=== PATIENT | male | born 1985 | race Caucasian/White ===

== ENCOUNTER 2019-02-26 20:03 | Emergency (ER) | payer SELFPAY ==
[2019-02-26] MEDS ORDERED: ONDANSETRON 4 MG/2 ML VIAL ONE (20:38)
[2019-02-26] MEDS ORDERED: MORPHINE 4 MG/ML SYR ONE (20:38)
[2019-02-26] MEDS ORDERED: NA CHLORIDE 0.9% 1,000 ML ONE (20:39)
[2019-02-26 21:14] LABS: Absolute Lymphocytes (CBC) 4.6 K/uL (0.7-4.9); Basophils % 0.1 % (0-1.3); Hematocrit 41.1 % (39.6-49.0); Lymphocytes % 35.7 % (15.3-44.8); RBC Red Blood Cell Count 4.19 M/uL (4.33-5.43)
[2019-02-26 21:19] LABS: Urine Blood 1+ (NEG); Urine Glucose NEGATIVE (NEG); Urine Protein NEGATIVE (NEG); Urine Specific Gravity <1.005 (1.005-1.030); Urine pH 6.5 (5.0-7.0)
[2019-02-26 21:31] LABS: Albumin 4.3 g/dL (3.4-5.0); Bilirubin Direct 0.1 mg/dL (0-0.2); Bilirubin Total 0.4 mg/dL (0.2-1.0); Potassium 3.5 mmol/L (3.5-5.1); Protein, Total 7.9 g/dL (6.4-8.2)
--- NOTE | 2019-02-26 21:51 | RAD REPORT ---
EXAM DESCRIPTION: US - Abdomen Exam Limited - 02/26/2019 9:35 pm CLINICAL HISTORY: ABD PAIN COMPARISON: No comparisons FINDINGS: The gallbladder demonstrates no gallstones. No pericholecystic fluid or gallbladder wall t hickening. The common bile duct is normal measuring 4 mm. The liver demonstrates no findings of intrahepatic biliary dilatation. IMPRESSION: Unremarkable examination.
[2019-02-26 22:05] LABS: Urine Bacteria <20 /HPF (NONE SEEN); Urine RBC <5 /HPF (NONE SEEN)
[2019-02-26 22:06] LABS: Urine Culture Reflex Order NOT NEEDED
[2019-02-26] MEDS ORDERED: MAGNE/ALUM HYDROXD 30 ML UCUP ONE (22:55)
[2019-02-26] MEDS ORDERED: PANTOPRAZOLE 40 MG INJ ONE (22:55)
--- NOTE | 2019-02-26 22:55 | ER ---
Nurse's Notes [facility] Name: Dayo Maguire Age: 33 yrs Sex: Male : 1985 Arrival Date: 02/26/2019 Time: 20:07 Bed 6 Private MD: Diagnosis: Gastritis, unspecified, without bleeding;Abdominal tenderness, unspecified site Presentation: 02/26 20:23 Presenting complaint: Patient states: Epigastric pain intermittent that began 3 days lp1 ago, radiating to back; + ETOH to help with pain; Denies any nausea, vomiting. Transition of care: patient was not received from another setting of care. Onset of symptoms was February 26, 2019. Risk Assessment: Do you want to hurt yourself or someone else? Patient reports no desire to harm self or others. Initial Sepsis Screen: Does the patient meet any 2 criteria? No. Patient's initial sepsis screen is negative. Does the patient have a suspected source of infection? No. Patient's initial sepsis screen is negative. Care prior to arrival: None. 20:23 Method Of Arrival: Ambulatory lp1 20:23 Acuity: OMAR 3 lp1 Historical: - Allergies: 20:26 No Known Allergies; lp1 - Home Meds: 20:26 None [Active]; lp1 - PMHx: 20:26 None; lp1 - PSHx: 20:26 None; lp1 - Immunization history:: Adult Immunizations up to date. - Social history:: Smoking status: Patient uses tobacco products, smokes one pack cigarettes per day. Patient uses alcohol, on a daily basis. states about 2 pints daily . - Ebola Screening: : No symptoms or risks identified at this time. Screenin:26 Abuse screen: Denies threats or abuse. Denies injuries from another. Nutritional lp1 screening: No deficits noted. Tuberculosis screening: No symptoms or risk factors identified. 20:30 Fall Risk IV access (20 points). Total Smalls Fall Scale indicates No Risk (0-24 pts). rr5 Assessment: 20:30 General: Appears in no apparent distress. comfortable, Behavior is calm, cooperative, rr5 appropriate for age, Reports had a few drinks. Pain: Complains of pain in epigastric area Pain does not radiate. Pain currently is 8 out of 10 on a pain scale. Quality of pain is described as aching, Pain began 2-3 days ago. Is intermittent. Neuro: Level of Consciousness is awake, alert, obeys commands, Oriented to person, place, time, situation, Appropriate for age. Cardiovascular: Capillary refill < 3 seconds Patient's skin is warm and dry. Respiratory: Airway is patent Respiratory effort is even, unlabored, Respiratory pattern is regular, symmetrical. GI: Abdomen is flat, Bowel sounds present X 4 quads. Abd is soft and non tender Reports upper abdominal pain, Patient currently denies nausea, vomiting. : No signs and/or symptoms were reported regarding the genitourinary system. EENT: No signs and/or symptoms were reported regarding the EENT system. Derm: Skin is intact, is healthy with good turgor, Skin temperature is warm. Musculoskeletal: Circulation, motion, and sensation intact. Capillary refill < 3 seconds. 21:16 Reassessment: Patient appears in no apparent distress at this time. Patient and/or cc3 family updated on plan of care and expected duration. Pain level reassessed. Patient is alert, oriented x 3, equal unlabored respirations, skin warm/dry/pink. Patient taken to ultrasound department by the vehicle operator technician by wheelchair. 22:04 Reassessment: Patient appears in no apparent distress at this time. Patient is alert, rr5 oriented x 3, equal unlabored respirations, skin warm/dry/pink. came back from CT scan pain score of 5/10. Patient states symptoms have improved. 23:16 Reassessment: Patient appears in no apparent distress at this time. Patient is alert, rr5 oriented x 3, equal unlabored respirations, skin warm/dry/pink. discharge instruction given and explained without complaints made, verbalized understanding. Patient states feeling better. Patient states symptoms have improved. Vital Signs: 20:24 BP 126 / 81; Pulse 77; Resp 18; Temp 97.8(O); Pulse Ox 98% on R/A; Weight 78.47 kg; lp1 Height 6 ft. 1 in. (185.42 cm); Pain 8/10; 22:00 BP 122 / 80; Pulse 75; Resp 17; Pulse Ox 98% on R/A; Pain 5/10; rr5 23:10 BP 117 / 75; Pulse 70; Resp 17; Temp 96.5; Pulse Ox 99% on R/A; rr5 20:24 Body Mass Index 22.82 (78.47 kg, 185.42 cm) lp1 ED Course: 20:07 Patient arrived in ED. cf2 20:24 Triage completed. lp1 20:25 Arm band placed on left wrist. lp1 20:27 Yunier Ng MD is Attending Physician. tw4 20:30 Ramón Malik, RN is Primary Nurse. rr5 20:36 Patient has correct armband on for positive identification. Bed in low position. Call rr5 light in reach. Pulse ox on. NIBP on. 20:40 Inserted saline lock: 18 gauge in right antecubital area, using aseptic technique. ds4 Blood collected. 21:36 US Abdomen Limited In Process Unspecified. EDMS 21:[address] via wheelchair. nj 22:12 CT Abd/Pelvis - IV Contrast Only In Process Unspecified. EDMS 23:18 No provider procedures requiring assistance completed. IV discontinued, intact, rr5 bleeding controlled, No redness/swelling at site. Pressure dressing applied. Administered Medications: 20:55 Drug: NS 0.9% 1000 ml Route: IV; Rate: 1 bolus; Site: right antecubital; rr5 22:10 Follow up: Response: No adverse reaction; IV Status: Completed infusion; IV Intake: rr5 1000ml 20:56 Drug: Zofran 4 mg Route: IVP; Site: right antecubital; rr5 22:00 Follow up: Response: No adverse reaction rr5 20:58 Drug: morphine 4 mg {Note: rass0.} Route: IVP; Site: right antecubital; rr5 22:00 Follow up: Response: No adverse reaction; RASS: Alert and Calm (0) rr5 22:53 Drug: GI Cocktail without - (Maalox Suspension 30 ml, Lidocaine Liquid 2 % 15 rr5 ml) Route: PO; 23:19 Follow up: Response: No adverse reaction rr5 22:55 Drug: ProTONIX 40 mg Route: IVP; Site: right antecubital; rr5 23:19 Follow up: Response: No adverse reaction rr5 Intake: 22:10 IV: 1000ml; Total: 1000ml. rr5 Outcome: 22:55 Discharge ordered by . tw4 23:18 Discharged to home ambulatory, with family. rr5 23:18 Condition: stable 23:18 Discharge instructions given to patient, Instructed on discharge instructions, follow up and referral plans. medication usage, Demonstrated understanding of instructions, follow-up care, medications, Prescriptions given X 1. 23:19 Patient left the ED. rr5 Signatures: Dispatcher [employer] EDMS Katie Odell, RN RN lp1 Dante Colindres ds4 Reji Marquez Terrence, MD MD tw4 Kay Garcia cc3 Ramón Malik RN RN rr5 Carmen Lara cf2
[2019-02-26] MEDS ORDERED: LIDOCAINE VISCOUS 2% SOLN 15 ML UDC ONE (22:56)
--- NOTE | 2019-02-26 22:56 | EDPHYS ---
Physician Documentation [facility] Name: Dayo Maguire Age: 33 yrs Sex: Male : 1985 Arrival Date: 02/26/2019 Time: 20:07 Bed 6 Private MD: ED Physician Yunier Ng HPI: 02/27 06:12 This 33 yrs old Male presents to ER via Ambulatory with complaints of tw4 Abdominal Pain, Back Pain. 06:14 The patient presents with abdominal pain in the epigastric area. Onset: The tw4 symptoms/episode began/occurred 4 day(s) ago. The symptoms radiate to back. Associated signs and symptoms: Pertinent positives: nausea, Pertinent negatives: chest pain, diarrhea, vomiting, vomiting blood. The symptoms are described as sharp. Modifying factors: The symptoms are alleviated by nothing, the symptoms are aggravated by alcohol, food. Severity of pain: At its worst the pain was moderate in the emergency department the pain is unchanged. The patient has not experienced similar symptoms in the past. Historical: - Allergies: 02/26 20:26 No Known Allergies; lp1 - Home Meds: 20:26 None [Active]; lp1 - PMHx: 20:26 None; lp1 - PSHx: 20:26 None; lp1 - Immunization history:: Adult Immunizations up to date. - Social history:: Smoking status: Patient uses tobacco products, smokes one pack cigarettes per day. Patient uses alcohol, on a daily basis. states about 2 pints daily . - Ebola Screening: : No symptoms or risks identified at this time. ROS: 02/27 06:14 Constitutional: Negative for fever, chills, and weight loss, Eyes: Negative for injury, tw4 pain, redness, and discharge, Cardiovascular: Negative for chest pain, palpitations, and edema, Respiratory: Negative for shortness of breath, cough, wheezing, and pleuritic chest pain, Back: Negative for injury and pain, MS/Extremity: Negative for injury and deformity, Skin: Negative for injury, rash, and discoloration, Neuro: Negative for headache, weakness, numbness, tingling, and seizure. Abdomen/GI: Positive for abdominal pain, nausea, Negative for nausea and vomiting, nausea, vomiting, and diarrhea, anorexia, dysphagia, hematemesis, black/tarry stool, rectal pain, rectal bleeding, bowel incontinence. Exam: 06:14 Constitutional: This is a well developed, well nourished patient who is awake, alert, tw4 and in no acute distress. Head/Face: Normocephalic, atraumatic. Chest/axilla: Normal chest wall appearance and motion. Nontender with no deformity. No lesions are appreciated. Cardiovascular: Regular rate and rhythm with a normal S1 and S2. No gallops, murmurs, or rubs. Normal PMI, no JVD. No pulse deficits. Respiratory: Lungs have equal breath sounds bilaterally, clear to auscultation and percussion. No rales, rhonchi or wheezes noted. No increased work of breathing, no retractions or nasal flaring. Back: No spinal tenderness. No costovertebral tenderness. Full range of motion. Skin: Warm, dry with normal turgor. Normal color with no rashes, no lesions, and no evidence of cellulitis. MS/ Extremity: Pulses equal, no cyanosis. Neurovascular intact. Full, normal range of motion. Neuro: Awake and alert, GCS 15, oriented to person, place, time, and situation. Cranial nerves II-XII grossly intact. Motor strength 5/5 in all extremities. Sensory grossly intact. Cerebellar exam normal. Normal gait. 06:14 Abdomen/GI: Inspection: abdomen appears normal, Bowel sounds: normal, Palpation: moderate abdominal tenderness, in the epigastric area. Vital Signs: 02/26 20:24 BP 126 / 81; Pulse 77; Resp 18; Temp 97.8(O); Pulse Ox 98% on R/A; Weight 78.47 kg; lp1 Height 6 ft. 1 in. (185.42 cm); Pain 8/10; 22:00 BP 122 / 80; Pulse 75; Resp 17; Pulse Ox 98% on R/A; Pain 5/10; rr5 23:10 BP 117 / 75; Pulse 70; Resp 17; Temp 96.5; Pulse Ox 99% on R/A; rr5 20:24 Body Mass Index 22.82 (78.47 kg, 185.42 cm) lp1 MDM: 20:27 Patient medically screened. tw4 02/27 06:14 Differential diagnosis: gastritis, gastroesophageal reflux disease, GI Bleed, tw4 Hepatitis, pancreatitis, Peptic Ulcer Disease, Perf. Duodenal Ulcer, Perf. Gastric Ulcer, Peritonitis. Data reviewed: vital signs, nurses notes. Data reviewed: lab test result(s), CBC, white blood cell count, hemoglobin, hematocrit, platelets, electrolytes, sodium, potassium, chloride, serum bicarbonate, BUN, creatinine, serum glucose, hepatic panel, radiologic studies, CT scan, ultrasound. Data interpreted: Pulse oximetry: Interpretation: normal. Counseling: I had a detailed discussion with the patient and/or guardian regarding: the historical points, exam findings, and any diagnostic results supporting the discharge/admit diagnosis, lab results, radiology results. Medication response: morphine relieved the patient's pain. Symptoms have resolved. Response to treatment: the patient's symptoms have resolved after treatment, and as a result, I will discharge patient. Special discussion: Based on the patient's Hx, exam, and Dx evaluation, there is no indication for emergent surgery or inpatient Tx. It is understood by the patient/guardian that if the Sx's persist or worsen they need to return immediately for re-evaluation. I discussed with the patient/guardian in detail that at this point there is no indication for admission to the hospital. It is understood, however, that if the symptoms persist or worsen the patient needs to return immediately for re-evaluation. 02/26 20:33 Order name: Basic Metabolic Panel; Complete Time: 21:44 tw4 02/26 20:33 Order name: CBC with Diff; Complete Time: :44 tw4 02/26 20:33 Order name: Creatinine for Radiology; Complete Time: 21:44 tw4 02/26 20:33 Order name: Hepatic Function; Complete Time: 21:44 4 02/26 20:33 Order name: Lipase; Complete Time: 21:44 4 02/26 21:00 Order name: Urine Dipstick--Ancillary (enter results); Complete Time: 21:44 cm6 02/26 21:01 Order name: Urine Microscopic Only; Complete Time: 22:51 rr5 02/26 21:05 Order name: US Abdomen Limited; Complete Time: 22:51 tw4 02/26 21:44 Order name: CT Abd/Pelvis - IV Contrast Only tw4 02/26 20:33 Order name: IV Saline Lock; Complete Time: 20:51 tw4 02/26 20:33 Order name: Labs collected and sent; Complete Time: 20:51 tw4 Administered Medications: 02/26 20:55 Drug: NS 0.9% 1000 ml Route: IV; Rate: 1 bolus; Site: right antecubital; rr5 22:10 Follow up: Response: No adverse reaction; IV Status: Completed infusion; IV Intake: rr5 1000ml 20:56 Drug: Zofran 4 mg Route: IVP; Site: right antecubital; rr5 22:00 Follow up: Response: No adverse reaction rr5 20:58 Drug: morphine 4 mg {Note: rass0.} Route: IVP; Site: right antecubital; rr5 22:00 Follow up: Response: No adverse reaction; RASS: Alert and Calm (0) rr5 22:53 Drug: GI Cocktail without - (Maalox Suspension 30 ml, Lidocaine Liquid 2 % 15 rr5 ml) Route: PO; 23:19 Follow up: Response: No adverse reaction rr5 22:55 Drug: ProTONIX 40 mg Route: IVP; Site: right antecubital; rr5 23:19 Follow up: Response: No adverse reaction rr5 Disposition: 02/26/19 22:55 Discharged to Home. Impression: Gastritis, unspecified, without bleeding, Abdominal tenderness, unspecified site. - Condition is Stable. - Discharge Instructions: Abdominal Pain, Adult, Gastritis, Adult. - Prescriptions for Protonix 40 mg Oral Tablet - take 1 tablet by ORAL route once daily; 30 tablet. Zofran 4 mg Oral Tablet - take 1 tablet by ORAL route every 12 hours As needed; 6 tablet. - Medication Reconciliation Form, Thank You Letter, Antibiotic Education, Prescription Opioid Use form. - Follow up: Private Physician; When: Upon discharge from the Emergency Department; Reason: Recheck today's complaints, Continuance of care. - Problem is new. - Symptoms have improved. Signatures: Dispatcher [employer] EDMS Katie Odell RN RN lp1 Yunier Ng MD MD tw4 Ramón Malik RN RN rr5 Corrections: (The following items were deleted from the chart) 23:19 22:55 02/26/2019 22:55 Discharged to Home. Impression: Gastritis, unspecified, without rr5 bleeding; Abdominal tenderness, unspecified site. Condition is Stable. Forms are Medication Reconciliation Form, Thank You Letter, Antibiotic Education, Prescription Opioid Use. Follow up: Private Physician; When: Upon discharge from the Emergency Department; Reason: Recheck today's complaints, Continuance of care. Problem is new. Symptoms have improved. tw4
[2019-02-26 23:36] VITALS: BP 117/75; TEMP 96.5; O2SAT 99
--- NOTE | 2019-02-27 10:49 | RAD REPORT ---
EXAM DESCRIPTION: Abdomen Pelvis W Contrast CLINICAL HISTORY: 33 years Male ABD PAIN COMPARISON: None TECHNIQUE: Images were obtained in axial, sagittal, and coronal planes. Intravenous contrast was adm inistered. This exam was performed according to our departmental dose-optimization program which includes use of Automated Exposure Control, adjustment of the mA and/or kV according to patient size and/or use of i terative reconstruction technique. FINDINGS: Appendix within normal limits. No bowel obstruction, perforation, or inflammation. No obstructing renal calcifications bilaterally. No hydronephrosis bilaterally. Moderately distended bladder. Mildly enlarged prostate gland. Surgical clips superior scrotal sacs bilaterally. No abnormality involving the liver, spleen, pancreas, gallbladder, or adrenal glands bilaterally. No abnormality abdominal aorta or portal vein. No adenopathy or abnormal fluid collections seen. No acute osseous abnormality. No abnormality lower lungs bilaterally. IMPRESSION: No acute intra-abdominal abnormality. Mildly enlarged prostate gland. Electronically signed by: Corina Hernández MD 02/26/2019 10:24 PM [employer] O[employer]ATOR Due to temporary technical issues with the PACS/Fluency reporting system, reports are being signed by the in house radiologist as a courtesy to ensure prompt reporting. The interpreting radiologist is f ully responsible for the content of the report.
== END 2019-02-26 23:19 | disposition home or self-care (01) ==
LOC: ER 20:03
DX: K29.70 Gastritis, unspecified, without bleeding (principal); F17.210 Nicotine dependence, cigarettes, uncomplicated
CPT/HCPCS: 36415; 74177; 76705; 80048; 80076; 81003; 81015; 83690; 85025; C9113; J2405; J7030; Q9967

== ENCOUNTER 2019-11-09 22:40 | Emergency (ER) | payer OTHER ==
--- OUTSIDE RECORDS SUMMARY | 2019-11-09 22:42 | XMS REPORT ---
:1985 Author Organization [employer] Care Team Providers Name Role Phone Franck Jacobh Provider Role Unavailable Allergies, Adverse Reactions, Alerts Substance Reaction Event Type N.K.D.A. Info Not Available Non Drug Allergy Problems Problem Type Condition Code Onset Dates Condition Statu s Assessment Encounter for counseling for Z71.6 Active tobacco use disorder Assessment Hypertriglyceridemia E78.1 Active Assessment Elevated LFTs R79.89 Active Problem Tobacco use disorder, continuous F17.209 Active Problem Alcohol abuse F10.10 Active Problem Hypertriglyceridemia E78.1 Active Assessment Alcohol abuse F10.10 Active Assessment Bilateral inguinal hernia without K40.20 Active obstruction or gangrene, recurrence not specified Assessment Tobacco use disorder, continuous F17.209 Active Medications Medication Code System Code Instructions Start Date End Date Status Dosage Nicotine [facility] [id number] 21 MG/24HR Active APPLY 1 PATCH EVERY DAY DIRECTED Results No Known Results Summary Purpose [employer] Submission
--- OUTSIDE RECORDS SUMMARY | 2019-11-09 22:42 | XMS REPORT | Continuity of Care Document ---
:1985 Author Organization [facility] t Address [address] [place] [address] Care Team Providers Name Role Phone Unavailable Unavailable Unavailable Problems Condition Condition Condition Status Onset Resolution Last Treating Co mments Source Name Details Category Date Date Treatment Clinician Date Encounter Encounter Diagnosis Active [facility] - counseling counseling Me moria for for l tobacco tobacco Outpat[facility] use use ent disorder disorder Clinic s Hypertrigl Hypertrigl Problem Active [facility] yceridemia yceridemia [facility]issa [facility] Elevated Elevated Diagnosis Active [facility] Tobacco Tobacco Diagnosis [facility], disorder, Gideon sussy continuous continuous l Outpati ent Clinics Alcohol Alcohol Diagnosis [facility] Bilateral Bilateral Diagnosis Active [facility] inguinal inguinal [facility] - hernia hernia [facility] without without l obstructio obstructio Ou tpati n or n or ent gangrene, gangrene, Clin ics recurrence recurrence not not specified specified Allergies, Adverse Reactions, Alerts This patient has no known allergies or adverse reactions. Medications Ordered Filled Start Stop Current Ordering Indication Dosage Frequency Signature Comments Components Source Medication Medication Date Date Medication? Clinician (SIG) Name Name Nicotine Nicotine Yes Danis APPLY [address] [facility] PATCH [facility] - EVERY DAY [facility] Procedures This patient has no known procedures. Encounters Start End Encounter Admission Attending Care Care Encounter Source Date/Time Date/Time Type Type Clinicians Facility Department ID 2019-08-30 2019-08-30 [facility] [id number] [facility] [address] 10:00:00 10:00:00 [facility] Medicine [facility] 2019-07-06 2019-07-06 [facility] [id number] [facility] [address] 09:00:00 09:00:00 t [employer] [facility] Medicine Outpati ent Clinics Results This patient has no known results.
[2019-11-09 23:48] LABS: Protime INR 0.94
[2019-11-09] MEDS ORDERED: NA CHLORIDE 0.9% 1,000 ML ONE (23:53)
[2019-11-10 00:03] LABS: ALT/SGPT 102 U/L (12-78); AST/SGOT 136 U/L (15-37); Alkaline Phosphatase 78 U/L (45-117); BUN Blood Urea Nitrogen 12 mg/dL (7-18); Bicarbonate 28 mmol/L (21-32); Bilirubin Direct 0.2 mg/dL (0-0.2); Bilirubin Total 0.5 mg/dL (0.2-1.0); Creatine Phosphokinase 871 U/L (39-308); Glucose Level 139 mg/dL (74-106); Magnesium 2.4 mg/dL (1.8-2.4); NT PRO-BNP 5 pg/mL (<125); Potassium 3.5 mmol/L (3.5-5.1); Sodium Level 144 mmol/L (136-145); Troponin (Emerg Dept Use Only) < 0.02 ng/mL (0.0-0.045)
[2019-11-10] MEDS ORDERED: NA CHLORIDE 0.9% 1,000 ML ONE (00:26)
[2019-11-10 00:32] LABS: Urine Blood 2+ (NEG); Urine Glucose NEGATIVE (NEG); Urine Protein 1+ (NEG); Urine Specific Gravity >1.030 (1.005-1.030); Urine pH 5.5 (5.0-7.0)
[2019-11-10 00:33] LABS: Absolute Lymphocytes (CBC) 3.7 K/uL (0.7-4.9); Basophils % 0.7 % (0-1.3); Hematocrit 39.6 % (39.6-49.0); Lymphocytes % 36.1 % (15.3-44.8); RBC Red Blood Cell Count 4.02 M/uL (4.33-5.43)
[2019-11-10 00:43] LABS: Barbiturates NEGATIVE (NEGATIVE); Benzodiazepines NEGATIVE (NEGATIVE); Cocaine NEGATIVE (NEGATIVE); METHAMPHETAM NEGATIVE (NEGATIVE); Methadone NEGATIVE (NEGATIVE); Opiates NEGATIVE (NEGATIVE); Phencyclidine NEGATIVE (NEGATIVE); THC Cannibis NEGATIVE (NEGATIVE)
[2019-11-10 00:58] LABS: Urine Bacteria 20-50 /HPF (NONE SEEN); Urine Culture Reflex Order REFLEXED; Urine Mucus 1+ /HPF (NONE SEEN)
[2019-11-10] MEDS ORDERED: CEFTRIAXONE/SWI 1gm 1 GM/10 ML SYR ONE (02:10)
--- NOTE | 2019-11-10 03:31 | EDPHYS ---
Physician Documentation [facility] Name: Dayo Maguire Age: 34 yrs Sex: Male : 1985 Arrival Date: 11/09/2019 Time: 22:41 Bed 17 Private MD: ED Physician Yunier Ng HPI: 11/08 23:20 This 34 yrs old Male presents to ER via Wheelchair with complaints of Altered cp Mental Status. 23:20 The patient presents with decreased mental status. cp 23:20 Onset: The symptoms/episode began/occurred today. Associated signs and symptoms: cp Pertinent positives: fatigue times 2 weeks, Pertinent negatives: abdominal pain, chest pain, combativeness. Current symptoms: In the emergency department the patient's symptoms are unchanged from the initial presentation. Patient's baseline: Neuro: alert and fully oriented, Motor: no deficits, Ambulation: walks without assistance, Speech: normal. 23:20 Significant other reports similar episode occurred with patient 2 weeks ago when he cp returned from fishing all day and slept all day the next day. Historical: - Allergies: 22:57 No Known Allergies; ll1 - PMHx: 22:57 seasonal allergies; ADD/ADHD; ll1 - PSHx: 22:57 Vasectomy; ll1 - Immunization history:: Adult Immunizations up to date. - Social history:: Smoking status: Patient reports the use of cigarette tobacco products, smokes one-half pack cigarettes per day, Patient uses alcohol, on a daily basis. Patient/guardian denies using street drugs. ROS: 23:25 Constitutional: Negative for body aches, chills, fever, poor PO intake. cp 23:25 Eyes: Negative for injury, pain, redness, and discharge. cp Exam: 23:30 ECG was reviewed by the Attending Physician. cp 23:33 Constitutional: The patient appears in no acute distress, alert, awake, cp non-diaphoretic, non-toxic, well developed, well nourished. 23:33 Head/Face: Normocephalic, atraumatic. cp 23:33 Eyes: Periorbital structures: appear normal, Pupils: equal, round, and reactive to light and accomodation, Extraocular movements: intact throughout, Conjunctiva: normal, no exudate, no injection, Sclera: no appreciated abnormality, Lids and lashes: appear normal, bilaterally. 23:33 ENT: External ear(s): are unremarkable, Nose: is normal, Mouth: is normal, Posterior pharynx: Airway: no evidence of obstruction, patent. 23:33 Neck: ROM/movement: is normal, is supple, without pain, no range of motions limitations, no meningismus. 23:33 Chest/axilla: Inspection: normal, Palpation: is normal, no crepitus, no tenderness. 23:33 Cardiovascular: Rate: normal, Rhythm: regular, Edema: is not appreciated, JVD: is not appreciated. 23:33 Respiratory: the patient does not display signs of respiratory distress, Respirations: normal, no use of accessory muscles, no retractions, labored breathing, is not present, Breath sounds: are clear throughout, no decreased breath sounds, no stridor, no wheezing. 23:33 Abdomen/GI: Inspection: abdomen appears normal, Bowel sounds: active, all quadrants, Palpation: abdomen is soft and non-tender, in all quadrants. 23:33 Back: pain, is absent. 23:33 Skin: cellulitis, is not appreciated, no rash present. 23:33 Neuro: Orientation: to person, place \T\ time. Mentation: able to follow commands, slow to respond, Cerebellar function: normal finger to nose testing, Motor: moves all fours, strength is normal, Sensation: numbness, that is mild, of the right arm. Vital Signs: 22:55 BP 127 / 93; Pulse 89; Resp 18; Temp 98.0; Pulse Ox 98% ; Pain 0/10; ll1 23:41 BP 125 / 95; Pulse 80; Resp 18; Pulse Ox 98% on R/A; 11/09 00:44 BP 123 / 83; Pulse 73; Resp 18; Pulse Ox 99% on R/A; 01:55 BP 113 / 79; Pulse 73; Resp 16; Pulse Ox 98% on R/A; 03:00 BP 108 / 79; Pulse 69; Resp 16; Pulse Ox 98% ; NIH Stroke Scale Scores: 11/08 23:40 NIHSS Score: 0 MDM: 23:04 Patient medically screened. cp 23:50 Differential Diagnosis: electrolyte abnormality, alcohol intoxication, overdose, cp sepsis, UTI, volume depletion, anemia. 11/09 03:30 Data reviewed: vital signs, nurses notes, lab test result(s), EKG, radiologic studies, cp CT scan, and as a result, I will discharge patient. 03:30 Test interpretation: by ED physician or midlevel provider: ECG. Counseling: I had a cp detailed discussion with the patient and/or guardian regarding: the historical points, exam findings, and any diagnostic results supporting the discharge/admit diagnosis, lab results, radiology results, to return to the emergency department if symptoms worsen or persist or if there are any questions or concerns that arise at home. Response to treatment: patient is well hydrated. VSS. Patient sleeping in exam room. Will discharge to home with significant other for continued monitoring. 11/08 23:18 Order name: UDS; Complete Time: 00:55 11/09 01:55 Interpretation: Reviewed. 11/08 23:18 Order name: Basic Metabolic Panel; Complete Time: 00:13 cp 11/09 00:55 Interpretation: Normal except: CL 108; GLUC 139; GFR 72; CA 8.3. 11/08 23:18 Order name: CBC with Diff; Complete Time: 00:55 11/09 00:55 Interpretation: Normal except: RBC 4.02. cp 11/08 23:18 Order name: LFT's; Complete Time: 00:13 cp 11/09 00:13 Interpretation: Normal except: AST 136; ALT 102; GLOB 4.0; A/G 1.0. cp 11/08 23:18 Order name: Magnesium; Complete Time: 00:13 cp 11/08 23:18 Order name: NT PRO-BNP; Complete Time: 00:13 cp 11/08 23:18 Order name: PT-INR; Complete Time: 00:13 cp 11/08 23:18 Order name: Troponin (emerg Dept Use Only); Complete Time: 00:13 cp 11/08 23:18 Order name: ETOH Level; Complete Time: 00:19 cp 11/09 00:19 Interpretation: Abnormal: ETOH 253. cp 11/08 23:18 Order name: CPK; Complete Time: 00:13 cp 11/09 00:13 Interpretation: Abnormal: CPK 871. cp 11/08 23:21 Order name: Urine Microscopic Only; Complete Time: 01:54 cp 11/09 01:55 Interpretation: Normal except: URBC 5-10; UBACT 20-50. cp 11/08 23:22 Order name: Lactate; Complete Time: 00:27 cp 11/09 00:27 Interpretation: Abnormal: LAC 2.1. cp 11/08 23:22 Order name: Procalcitonin; Complete Time: 00:55 cp 11/09 00:27 Order name: Urine Dipstick--Ancillary (enter results); Complete Time: 00:55 tt3 11/09 00:55 Interpretation: Normal except: USPGR >1.030; UBLD 2+; UPROT 1+. cp 11/08 23:18 Order name: EKG; Complete Time: 23:19 cp 11/08 23:18 Order name: Cardiac monitoring; Complete Time: 23:36 cp 11/08 23:18 Order name: EKG - Nurse/Tech; Complete Time: 23:37 cp 11/08 23:18 Order name: IV Saline Lock; Complete Time: 23:37 cp 11/08 23:18 Order name: Labs collected and sent; Complete Time: 23:37 cp 11/08 23:18 Order name: O2 Per Protocol; Complete Time: 23:37 cp 11/08 23:18 Order name: O2 Sat Monitoring; Complete Time: 23:37 cp 11/08 23:18 Order name: CT Head Brain wo Cont cp 11/08 23:21 Order name: Urine Dipstick-Ancillary (obtain specimen); Complete Time: 00:28 cp 11/09 01:00 Order name: Urine Culture EDMS 11/09 03:28 Order name: Lactate Sepsis 2 HR Follow-up; Complete Time: 03:29 EDMS EC/01 23:30 Rate is 77 beats/min. Rhythm is regular. PA interval is normal. QRS interval is normal. cp QT interval is normal. T waves are Inverted in lead aVR. Interpreted by me. Reviewed by me. Administered Medications: 23:46 Drug: NS 0.9% 1000 ml Route: IV; Rate: 1 bolus; Site: right antecubital; 11/09 03:45 Follow up: Response: No adverse reaction; IV Status: Completed infusion 00:27 Drug: NS 0.9% 1000 ml Route: IV; Rate: 1 bolus; Site: right antecubital; 01:16 Follow up: Response: No adverse reaction; IV Status: Completed infusion 03:04 Follow up: Response: No adverse reaction; IV Status: Completed infusion 02:12 Drug: Rocephin 1 grams Route: IV; Rate: calculated rate; Site: right antecubital; 03:04 Follow up: Response: No adverse reaction; IV Status: Completed infusion Disposition: 11/10/19 03:30 Discharged to Home. Impression: Alcohol use, unspecified with intoxication, Urinary tract infection, site not specified. - Condition is Stable. - Discharge Instructions: Alcohol Intoxication, Urinary Tract Infection, Adult. - Prescriptions for Cipro 500 mg Oral Tablet - take 1 tablet by ORAL route every 12 hours for 7 days; 14 tablet. - Medication Reconciliation Form, Thank You Letter, Antibiotic Education, Prescription Opioid Use form. - Follow up: Private Physician; When: 1 - 2 days; Reason: Worsening of condition. - Problem is new. - Symptoms have improved. NIH Stroke Scale - NIH Stroke Score Date: 11/09/2019 Time: 23:40 Total Score = 0 1a. Level of Consciousness (LOC) - 0(Alert) 1b. Level of Consciousness (LOC) (Year \T\ Age) - 0(Both) 1c. LOC Commands (Open \T\ Closes Eyes/[facility] Of Hospital) - 0(Both) 2. Best Gaze (Lateral Gaze Paresis) - 0(Normal) 3. Visual Field Loss - 0(No visual loss) 4. Facial Palsy - 0(Normal) 5a. Left Arm: Motor (10-second hold) - 0(No drift) 5b. Right Arm: Motor (10-second hold) - 0(No drift) 6a. Left Leg: Motor (5-second hold - always test supine) - 0(No drift) 6b. Right Leg: Motor (5-second hold - always test supine) - 0(No drift) 7. Limb Ataxia (finger/nose \T\ heel/burgos - test with eyes open) - 0(Absent) 8. Sensory Loss (pinprick arms/legs/face) - 0(Normal) 9. Best Language: Aphasia (description/naming/reading) - 0(No aphasia) 10. Dysarthria (speech clarity - read or repeat words) - 0(Normal) 11. Extinction and Inattention (visual/tactile/auditory/spatial/personal) - 0(No abnormality) Initials: Addendum: 11/11/2019 04:30 Co-signature as Attending Physician, Yunier Ng MD I agree with the tw4 assessment and plan of care. Signatures: Dispatcher [employer] EDMS Leonel Pickett PA PA cp Karel, Ludy Yunier Ng MD MD tw4 Antonio Houston, RN RN ll1 Corrections: (The following items were deleted from the chart) 11/09 00:55 00:13 Normal except: CL 108; GLUC 139; GFR 72. cp cp 03:45 03:30 11/10/2019 03:30 Discharged to Home. Impression: Alcohol use, unspecified wh with intoxication; Urinary tract infection, site not specified. Condition is Stable. Forms are Medication Reconciliation Form, Thank You Letter, Antibiotic Education, Prescription Opioid Use. Follow up: Private Physician; When: 1 - 2 days; Reason: Worsening of condition. Problem is new. Symptoms have improved. cp
--- NOTE | 2019-11-10 03:31 | ER ---
Nurse's Notes [facility] Name: Dayo Maguire Age: 34 yrs Sex: Male : 1985 Arrival Date: 11/09/2019 Time: 22:41 Bed 17 Private MD: Diagnosis: Alcohol use, unspecified with intoxication;Urinary tract infection, site not specified Presentation: 11/08 22:55 Chief complaint: Patient states: Severe fatigue for 2 weeks. No cough/fever. Good ll1 appetite. Denies N/V/D. Coronavirus screen: Client denies travel out of the [place] in the last 14 days. fatigue, At this time, the client does not indicate any symptoms associated with coronavirus-19. Ebola Screen: Patient denies travel to an Ebola-affected area in the 21 days before illness onset. Initial Sepsis Screen: Does the patient meet any 2 criteria? No. Patient's initial sepsis screen is negative. Risk Assessment: Do you want to hurt yourself or someone else? Patient reports no desire to harm self or others. Onset of symptoms was October 25, 2019. 22:55 Method Of Arrival: Wheelchair ll1 22:55 Acuity: OMAR 3 ll1 23:41 Initial Sepsis Screen: Does the patient have a suspected source of infection? No. wh Patient's initial sepsis screen is negative. Historical: - Allergies: 22:57 No Known Allergies; ll1 - PMHx: 22:57 seasonal allergies; ADD/ADHD; ll1 - PSHx: 22:57 Vasectomy; ll1 - Immunization history:: Adult Immunizations up to date. - Social history:: Smoking status: Patient reports the use of cigarette tobacco products, smokes one-half pack cigarettes per day, Patient uses alcohol, on a daily basis. Patient/guardian denies using street drugs. Screenin:40 Abuse screen: Denies threats or abuse. Denies injuries from another. Nutritional wh screening: No deficits noted. Tuberculosis screening: No symptoms or risk factors identified. Fall Risk None identified. 23:40 VAN Screening: Arm Drift: Patient shows no arm weakness. Visual Disturbance: No visual wh disturbance noted. Aphasia: No aphasia noted. Neglect: No neglect noted. Assessment: 23:39 General: Appears in no apparent distress. Behavior is calm, cooperative, appropriate wh for age. Pain: Denies pain. Neuro: Level of Consciousness is awake, alert, obeys commands, Oriented to person, place, time, situation, Appropriate for age [employer] are equal bilaterally Moves all extremities. Gait is steady, Speech is normal, Facial symmetry appears normal, Pupils are PERRLA, Reports weakness. Cardiovascular: Heart tones S1 S2. Respiratory: Airway is patent Respiratory effort is even, unlabored, Respiratory pattern is regular, symmetrical, Breath sounds are clear bilaterally. GI: Abdomen is flat, non-distended. : No signs and/or symptoms were reported regarding the genitourinary system. EENT: No signs and/or symptoms were reported regarding the EENT system. Derm: Skin is intact, is healthy with good turgor, Skin is pink, warm \T\ dry. normal. Musculoskeletal: Circulation, motion, and sensation intact. 11/09 00:44 Reassessment: Patient appears in no apparent distress at this time. No changes from previously documented assessment. Patient and/or family updated on plan of care and expected duration. Pain level reassessed. Patient is alert, oriented x 3, equal unlabored respirations, skin warm/dry/pink. 01:55 Reassessment: Patient appears in no apparent distress at this time. No changes from previously documented assessment. Patient and/or family updated on plan of care and expected duration. Pain level reassessed. Patient is alert, oriented x 3, equal unlabored respirations, skin warm/dry/pink. 03:04 Reassessment: Patient appears in no apparent distress at this time. No changes from previously documented assessment. Patient and/or family updated on plan of care and expected duration. Pain level reassessed. Patient is alert, oriented x 3, equal unlabored respirations, skin warm/dry/pink. Pt sleeping well no signs of distress noted. Vital Signs: 11/08 22:55 BP 127 / 93; Pulse 89; Resp 18; Temp 98.0; Pulse Ox 98% ; Pain 0/10; ll1 23:41 BP 125 / 95; Pulse 80; Resp 18; Pulse Ox 98% on R/A; 11/09 00:44 BP 123 / 83; Pulse 73; Resp 18; Pulse Ox 99% on R/A; 01:55 BP 113 / 79; Pulse 73; Resp 16; Pulse Ox 98% on R/A; 03:00 BP 108 / 79; Pulse 69; Resp 16; Pulse Ox 98% ; NIH Stroke Scale Scores: 11/08 23:40 NIHSS Score: 0 ED Course: 22:41 Patient arrived in ED. cl3 22:56 Triage completed. ll1 22:57 Arm band placed on Patient placed in an exam room, on a stretcher. ll1 23:04 Leonel Pickett PA is PHCP. cp 23:04 Yunier Ng MD is Attending Physician. cp 23:19 Ludy Vinson is Primary Nurse. 23:20 Inserted saline lock: 20 gauge in right antecubital area, using aseptic technique. Blood collected. 23:31 Radiology exam delayed due to Currently have IV started and labs drawn. kw1 23:41 Patient has correct armband on for positive identification. Placed in gown. Bed in low wh position. Call light in reach. Side rails up X 1. secured entrance monitor on. Pulse ox on. NIBP on. 23:46 CT Head Brain wo Cont In Process Unspecified. EDMS 11/09 03:42 No provider procedures requiring assistance completed. IV discontinued, intact, bleeding controlled, No redness/swelling at site. Administered Medications: 11/08 23:46 Drug: NS 0.9% 1000 ml Route: IV; Rate: 1 bolus; Site: right antecubital; 11/09 03:45 Follow up: Response: No adverse reaction; IV Status: Completed infusion 00:27 Drug: NS 0.9% 1000 ml Route: IV; Rate: 1 bolus; Site: right antecubital; 01:16 Follow up: Response: No adverse reaction; IV Status: Completed infusion 03:04 Follow up: Response: No adverse reaction; IV Status: Completed infusion 02:12 Drug: Rocephin 1 grams Route: IV; Rate: calculated rate; Site: right antecubital; 03:04 Follow up: Response: No adverse reaction; IV Status: Completed infusion Outcome: 03:30 Discharge ordered by . cp 03:44 Discharged to home ambulatory, with family. 03:44 Condition: stable 03:44 Discharge instructions given to patient, family, Instructed on discharge instructions, follow up and referral plans. medication usage, POC Demonstrated understanding of instructions, follow-up care, medications, POC Prescriptions given X 1. 03:45 Patient left the ED. NIH Stroke Scale - NIH Stroke Score Date: 11/09/2019 Time: 23:40 Total Score = 0 1a. Level of Consciousness (LOC) - 0(Alert) 1b. Level of Consciousness (LOC) (Year \T\ Age) - 0(Both) 1c. LOC Commands (Open \T\ Closes Eyes/Try Out Person) - 0(Both) 2. Best Gaze (Lateral Gaze Paresis) - 0(Normal) 3. Visual Field Loss - 0(No visual loss) 4. Facial Palsy - 0(Normal) 5a. Left Arm: Motor (10-second hold) - 0(No drift) 5b. Right Arm: Motor (10-second hold) - 0(No drift) 6a. Left Leg: Motor (5-second hold - always test supine) - 0(No drift) 6b. Right Leg: Motor (5-second hold - always test supine) - 0(No drift) 7. Limb Ataxia (finger/nose \T\ heel/burgos - test with eyes open) - 0(Absent) 8. Sensory Loss (pinprick arms/legs/face) - 0(Normal) 9. Best Language: Aphasia (description/naming/reading) - 0(No aphasia) 10. Dysarthria (speech clarity - read or repeat words) - 0(Normal) 11. Extinction and Inattention (visual/tactile/auditory/spatial/personal) - 0(No abnormality) Initials: Signatures: Dispatcher [employer] EDMS Leonel Pickett PA PA cp Habalo, Winsy Perla Salas1 Olivia Houston cl3 Antonio Houston RN RN ll1
[2019-11-10 03:55] VITALS: TEMP 98
[2019-11-10 03:59] VITALS: O2SAT 98
[2019-11-10 04:00] VITALS: BP 108/79
--- NOTE | 2019-11-11 11:06 | RAD REPORT ---
EXAM DESCRIPTION: CT - Head Brain Wo Cont - 11/10/2019 3:19 am CLINICAL HISTORY: 34-year-old male with severe fatigue for two weeks. COMPARISON: None. TECHNIQUE: CT brain without contrast. This exam was performed according to our departmental dose opt imization program which includes use of automated exposure control, adjustment of the mA and/or kV ac cording to patient size and/or use of iterative reconstruction technique. FINDINGS: The ventricles, sulci, and cisterns are within normal limits. The espinoza-white matter diff erentiation is preserved. There is no mass effect, midline shift, intra- or extra-axial fluid colle ction/acute hemorrhage. The osseous structures are unremarkable. The paranasal sinuses and mastoi d air cells are clear. IMPRESSION: No acute intracranial abnormalities. Electronically signed by: Ana Paula Ng MD 11/09/2019 11:58 PM CDT Due to temporary technical issues with the PACS/Fluency reporting system, reports are being signed by the in house radiologist without review as a courtesy to ensure prompt reporting. The interpreting r adiologist is fully responsible for the content of the report.
== END 2019-11-10 03:45 | disposition home or self-care (01) ==
LOC: ER 22:40
DX: F10.129 Alcohol abuse with intoxication, unspecified (principal); N39.0 Urinary tract infection, site not specified; F17.210 Nicotine dependence, cigarettes, uncomplicated
CPT/HCPCS: 93005; 87088; 85025; 87086; 80048; 36415 ×2; 80320; 83735; 82550; 85610; 80076; 80307 ×8; 83605 ×2; 84484; 84145; 83880; 70450; J0696; J7030 ×2; 81003; 81015; 96361; 96365; 99284

== ENCOUNTER 2023-05-29 07:24 | Day surgery (SDC) | payer BC ==
--- NOTE | 2023-05-25 14:39 | EKG ---
Test Date: 2023-05-25 Test Time: 11:22:49 Multiple Resaw Operator: YOSVANY MEASUREMENT RESULTS: Intervals: Rate: 74 SD: 144 QRSD: 86 QT: 400 QTc: 444 Biggs: P: 58 SD: 144 QRS: 40 T: 32 INTERPRETIVE STATEMENTS: Normal sinus rhythm Normal ECG Compared to ECG 11/09/2019 23:23:40 No significant changes Electronically Signed On 05-25-23 14:39:16 SIGNALMAN by Nelson Valdes
[2023-05-29] MEDS ORDERED: Ringers Lactate 1,000 ML IV ONE (07:37)
[2023-05-29] MEDS ORDERED: LIDOCAINE 1% MPF 5 ML VIAL ONE (08:43)
[2023-05-29] MEDS ORDERED: propofoL 200 MG/20 ML VIAL IV ONE ×2 (08:43→09:03)
[2023-05-29] MEDS ORDERED: NS 0.9% VIAL 10 ML ONE (08:44)
[2023-05-29 11:26] VITALS: BP 131/89; TEMP 97.5; O2SAT 100
== END 2023-05-29 09:50 | disposition home or self-care (01) ==
LOC: OR 07:24
PROVIDERS: ATTEND Surgery
PROC: 0DBM8ZX Excision of Descending Colon, Via Natural or Artificial Opening Endoscopic, Diagnostic (ICD-10-PCS; principal; 2023-05-29 08:30)
DX: K62.5 Hemorrhage of anus and rectum (principal); R19.4 Change in bowel habit; K57.30 Diverticulosis of large intestine without perforation or abscess without bleeding; K64.4 Residual hemorrhoidal skin tags; K64.8 Other hemorrhoids; K63.5 Polyp of colon; Z80.0 Family history of malignant neoplasm of digestive organs
CPT/HCPCS: 93005; 88305; 45384; A4216; J2704 ×2; J2001; J7120

== ENCOUNTER 2023-10-03 09:12 | Emergency (ER) | payer BC ==
[2023-10-03 09:52] LABS: Absolute Basophils 0.1 K/uL (0-0.5); Absolute Eosinophils 0.2 K/uL (0-0.5); Absolute Monocytes 0.9 K/uL (0.1-1.3); Absolute Neutrophil 6.4 K/uL (1.8-8.0); Eosinophils % 1.6 % (0-4.4); Hematocrit 47.4 % (39.6-49.0); Hemoglobin 16.6 g/dL (13.6-17.9); Lymphocytes % 28.3 % (15.3-44.8); MCH 36.2 pg (27.0-35.0); MCV 103.4 fL (80-100); MPV 7.8 fL (7.6-11.3); Monocytes % 8.8 % (3.3-12.3); Neutrophils % 60.3 % (41.7-73.7); Platelets 263 thou/uL (152-406); RBC Red Blood Cell Count 4.58 M/uL (4.33-5.43); Red Cell Distribution Width 14.2 % (12.1-15.2)
[2023-10-03 09:56] LABS: PT Prothrombin Time 10.6 SECONDS (9.4-12.5); PTT, Activated Partial Thromb 36.6 SECONDS (24.3-36.9); Protime INR 0.96
[2023-10-03 10:15] LABS: ALT/SGPT 102 U/L (16-61); AST/SGOT 157 U/L (15-37); Albumin 4.2 g/dL (3.4-5.0); Alkaline Phosphatase 76 U/L (45-117); Anion Gap 10.5 mEq/L (5.0-15.0); BUN Blood Urea Nitrogen 12 mg/dL (7-18); Bicarbonate 29 mEq/L (21-32); Bilirubin Direct 0.2 mg/dL (0-0.2); Bilirubin Indirect, Calculated 0.4 mg/dL (0.2-0.8); Bilirubin Total 0.6 mg/dL (0.2-1.0); Globulin 4.1 g/dL (2.3-3.5); Glomerular Filtration Rate 108 ml/min (=/>90); Glucose Level 115 mg/dL (74-106); Magnesium 2.1 mg/dL (1.6-2.4); NT PRO-BNP 10 pg/mL (<125); Potassium 3.5 mEq/L (3.5-5.1); Protein, Total 8.3 g/dL (6.4-8.2); Sodium Level 136 mEq/L (136-145); Troponin High Sensitivity 4.5 pg/mL (<58.9)
[2023-10-03 10:21] LABS: SARS-CoV-2 Antigen CONTROL BLUE LINE VIS/BG OK; SARS-CoV-2 Antigen Rapid Res Negative (Negative)
[2023-10-03 10:38] LABS: Specific Gravity < 1.005 (1.005-1.030); Sqamous Epithelial None Seen /HPF (None Seen); Urine Bacteria None Seen /HPF (<20); Urine Bilirubin NEGATIVE (Negative); Urine Blood 1+ (Negative); Urine Clarity Clear (Clear); Urine Color Colorless (Yellow); Urine Culture Reflex Order NOT NEEDED; Urine Glucose NEGATIVE (Negative); Urine Ketones NEGATIVE (Negative); Urine Microscopic Reflex YN ORDER UMIC; Urine Nitrite NEGATIVE (Negative); Urine Protein NEGATIVE (Negative); Urine RBC <5 /HPF (None Seen); Urine Urobilinogen Normal (Normal); Urine WBC <5 /HPF (<5)
[2023-10-03 10:48] LABS: Barbiturates NEGATIVE (NEGATIVE); Benzodiazepines NEGATIVE (NEGATIVE); Cocaine NEGATIVE (NEGATIVE); METHAMPHETAM NEGATIVE (NEGATIVE); Methadone NEGATIVE (NEGATIVE); Opiates NEGATIVE (NEGATIVE); Phencyclidine NEGATIVE (NEGATIVE); THC Cannibis NEGATIVE (NEGATIVE)
--- NOTE | 2023-10-03 11:35 | ER ---
Nurse's Notes [facility] Name: Dayo Maguire Jr Age: 38 yrs Sex: Male : 1985 Arrival Date: 10/03/2023 Time: 09:12 Bed 30 Private MD: Diagnosis: Altered mental status, unspecified;Other malaise and fatigue Presentation: 10/02 09:18 Chief complaint: Patient states: Confusion, weakness, sleeping a lot, AMS, hard to ll1 move/walk since after leaving work. Cough with mucous for 2 days. Coronavirus screen: Client denies travel out of the [place] in the last 14 days. cough unrelated to allergies. Ebola Screen: Patient denies travel to an Ebola-affected area in the 21 days before illness onset. Initial Sepsis Screen: Does the patient meet any 2 criteria? No. Patient's initial sepsis screen is negative. Does the patient have a suspected source of infection? No. Patient's initial sepsis screen is negative. Risk Assessment: Do you want to hurt yourself or someone else? Patient reports no desire to harm self or others. Onset of symptoms was September 28, 2023. 09:18 Method Of Arrival: Ambulatory ll1 09:18 Acuity: OMAR 2 ll1 Historical: - Allergies: 09:18 No Known Allergies; ll1 - PMHx: 09:18 ADD/ADHD; seasonal allergies; Hypertensive disorder; ll1 - PSHx: 09:18 Vasectomy; ll1 - Immunization history:: Adult Immunizations up to date. - Infectious Disease History:: Denies. - Social history:: Smoking status: Patient reports the use of cigarette tobacco products, smokes one-half pack cigarettes per day. Screenin:34 [facility] ED Fall Risk Assessment (Adult) History of falling in the last 3 months, ph including since admission No falls in past 3 months (0 pts) Confusion or Disorientation No (0 pts) Intoxicated or Sedated No (0 pts) Impaired Gait No (0 pts) Mobility Assist Device Used No (0 pt) Altered Elimination No (0 pt) Score/Fall Risk Level 0 - 2 = Low Risk Oriented to surroundings, Maintained a safe environment, Provided non-skid footwear. Abuse screen: Denies threats or abuse. Denies injuries from another. Nutritional screening: No deficits noted. Tuberculosis screening: No symptoms or risk factors identified. Assessment: 10:33 General: Appears in no apparent distress. uncomfortable, slender, well groomed, ph Behavior is cooperative, appropriate for age, anxious, flat. Pain: Denies pain. Neuro: Level of Consciousness is awake, obeys commands, confused, Oriented to person, place, situation, Reports weakness. Cardiovascular: Capillary refill < 3 seconds in bilateral fingers Patient's skin is warm and dry. Respiratory: Airway is patent Respiratory effort is even, unlabored, Respiratory pattern is regular, symmetrical. GI: No signs and/or symptoms were reported involving the gastrointestinal system. Derm: Skin is pink, warm \T\ dry. 12:18 Reassessment: Patient appears in no apparent distress at this time. Patient and/or ph family updated on plan of care and expected duration. Pain level reassessed. D/C pending completion of IV fluids. Vital Signs: 09:18 BP 158 / 107; Pulse 106; Resp 17; Temp 97.9; Pulse Ox 97% ; Weight 86.18 kg; Height 6 ll1 ft. 0 in. ; Pain 3/10; 10:34 BP 138 / 108; Pulse 87; Resp 18; Pulse Ox 94% on R/A; ph 12:00 BP 124 / 81; Pulse 81; Resp 18; Pulse Ox 95% on R/A; ph 09:18 Body Mass Index 25.77 (86.18 kg, 182.88 cm) ll1 09:18 Pain Scale: Adult ll1 ED Course: 08:55 Initial lab(s) drawn, by ma, sent to lab. Inserted saline lock: 20 gauge in right ph antecubital area, using aseptic technique. Blood collected. 09:10 COVID swab sent to lab. Flu and/or RSV swab sent to lab. ph 09:13 Patient arrived in ED. mr 09:13 Leonel Dickerson MD is Attending Physician. jessica 09:20 Triage completed. ll1 09:20 Arm band placed on Patient placed in an exam room, on a stretcher. ll1 09:26 CT Head Brain wo Cont In Process Unspecified. EDMS 10:04 Ca Multani, RN is Primary Nurse. ph 10:32 EKG done, by ED staff, reviewed by Leonel Dickerson MD. ph 10:34 Patient has correct armband on for positive identification. Bed in low position. Call ph light in reach. Side rails up X 1. Client placed on continuous cardiac and pulse oximetry monitoring. NIBP monitoring applied. air sampling and monitoring on. Door closed. Noise minimized. Warm blanket given. 11:59 XRAY Chest (1 view) In Process Unspecified. EDMS 12:45 No provider procedures requiring assistance completed. IV discontinued, intact, ph bleeding controlled, No redness/swelling at site. Pressure dressing applied. Administered Medications: 10:05 Drug: NS 0.9% IV 1000 ml IV at 1 bolus Per protocol; 1000 mL bolus Route: IV; Rate: 1 ph bolus; Site: right antecubital; 10:45 Follow up: Response: No adverse reaction; IV Status: Completed infusion ph 10:05 Drug: foLIC Acid IVPB 1 mg IVPB once Route: IVPB; Site: right antecubital; ph 10:30 Follow up: IV Status: Completed infusion ph 11:30 Drug: Thiamine IV 100 mg IV at bolus once Route: IV; Rate: bolus; Site: right antecubital; 18:46 Follow up: Response: No adverse reaction; IV Status: Completed infusion ph 11:30 Drug: Banana Bag - (Multivitamin IV 1 amp, NS 0.9% IV 1000 ml, Thiamine IV 100 mg, ph foLIC Acid IVPB 1 mg) IV at 500 ml/hr once Route: IV; Rate: 500 ml/hr; Site: right antecubital; 13:00 Follow up: Response: No adverse reaction; IV Status: Completed infusion; IV Intake: ph 1000ml 11:30 Drug: Famotidine IVP 20 mg IVP once; dilute with 10 mL 0.9% NaCl; give over 2 minutes ph Route: IVP; Site: right antecubital; 12:00 Follow up: Response: No adverse reaction ph 11:30 Drug: Rocephin IV 2 grams IV at per protocol once; Given slow IV push per pharmarcy ph instructions Route: IV; Rate: per protocol; Site: right antecubital; 12:00 Follow up: Response: No adverse reaction; IV Status: Completed infusion ph Intake: 13:00 IV: 1000ml; Total: 1000ml. ph Outcome: 11:35 Discharge ordered by jessica 12:45 Patient left the ED. ph 12:45 Discharged to home ambulatory, with significant other, ph 12:45 Condition: good 12:45 Discharge instructions given to patient, significant other, Instructed on discharge instructions, follow up and referral plans. medication usage, Demonstrated understanding of instructions, follow-up care, medications, Prescriptions given X 1, 15:53 Patient left the ED. ph Signatures: Dispatcher [employer] EDLeonel Regan MD MD cha Rivera, Silke, Reg Reg mr Ca Multani RN RN ph Lewis, Lynsay, RN RN ll1 Corrections: (The following items were deleted from the chart) 09:20 09:18 Pulse 106bpm; Resp 17bpm; Pulse Ox 97%; Temp 97.9F; 86.18 kg; Height 6 ft. 0 in.; ll1 BMI: 25.7; Pain 310, Adult; ll1
--- NOTE | 2023-10-03 11:35 | EDPHYS ---
Physician Documentation [facility] Name: Dayo Maguire Jr Age: 38 yrs Sex: Male : 1985 Arrival Date: 10/03/2023 Time: 09:12 Bed 30 Private MD: ED Physician Leonel Dickerson HPI: 10/02 09:43 This 38 yrs old Male presents to ER via Ambulatory with complaints of Altered jessica Mental Status, Confusion. 09:43 The patient presents with confusion, decreased mental status. Onset: The jessica symptoms/episode began/occurred 5 day(s) ago. Possible causes: CVA or TIA, drug use, alcohol, head injury, low blood sugar, seizure, sepsis. Associated signs and symptoms: The patient has no apparent associated signs or symptoms. Current symptoms: In the emergency department the patient's symptoms are unchanged from the initial presentation. Patient's baseline: Neuro: alert and fully oriented, Motor: no deficits, Ambulation: walks without assistance, Speech: normal. The patient has not experienced similar symptoms in the past. Historical: - Allergies: 09:18 No Known Allergies; ll1 - PMHx: 09:18 ADD/ADHD; seasonal allergies; Hypertensive disorder; ll1 - PSHx: 09:18 Vasectomy; ll1 - Immunization history:: Adult Immunizations up to date. - Infectious Disease History:: Denies. - Social history:: Smoking status: Patient reports the use of cigarette tobacco products, smokes one-half pack cigarettes per day. ROS: 09:50 Constitutional: Negative for fever, chills, and weight loss, Eyes: Negative for injury, jessica pain, redness, and discharge, ENT: Negative for injury, pain, and discharge, Neck: Negative for injury, pain, and swelling, Cardiovascular: Negative for chest pain, palpitations, and edema, Abdomen/GI: Negative for abdominal pain, nausea, vomiting, diarrhea, and constipation, Back: Negative for injury and pain, : Negative for injury, bleeding, discharge, and swelling, MS/Extremity: Negative for injury and deformity, Skin: Negative for injury, rash, and discoloration, Psych: Negative for depression, anxiety, suicide ideation, homicidal ideation, and hallucinations, Allergy/Immunology: Negative for hives, rash, and allergies, Endocrine: Negative for neck swelling, polydipsia, polyuria, polyphagia, and marked weight changes, Hematologic/Lymphatic: Negative for swollen nodes, abnormal bleeding, and unusual bruising, 09:50 Respiratory: Positive for cough, 09:50 Neuro: Positive for altered mental status, dizziness, weakness, Exam: 09:50 Constitutional: This is a well developed, well nourished patient who is awake, alert, jessica and in no acute distress. Head/Face: Normocephalic, atraumatic. Eyes: Pupils equal round and reactive to light, extra-ocular motions intact. Lids and lashes normal. Conjunctiva and sclera are non-icteric and not injected. Cornea within normal limits. Periorbital areas with no swelling, redness, or edema. ENT: Nares patent. No nasal discharge, no septal abnormalities noted. Tympanic membranes are normal and external auditory canals are clear. Oropharynx with no redness, swelling, or masses, exudates, or evidence of obstruction, uvula midline. Mucous membranes moist. Neck: Trachea midline, no thyromegaly or masses palpated, and no cervical lymphadenopathy. Supple, full range of motion without nuchal rigidity, or vertebral point tenderness. No Meningismus. Chest/axilla: Normal chest wall appearance and motion. Nontender with no deformity. No lesions are appreciated. Cardiovascular: Regular rate and rhythm with a normal S1 and S2. No gallops, murmurs, or rubs. Normal PMI, no JVD. No pulse deficits. Respiratory: Lungs have equal breath sounds bilaterally, clear to auscultation and percussion. No rales, rhonchi or wheezes noted. No increased work of breathing, no retractions or nasal flaring. Abdomen/GI: Soft, non-tender, with normal bowel sounds. No distension or tympany. No guarding or rebound. No evidence of tenderness throughout. Back: No spinal tenderness. No costovertebral tenderness. Full range of motion. Male : Normal genitalia with no discharge or lesions. Skin: Warm, dry with normal turgor. Normal color with no rashes, no lesions, and no evidence of cellulitis. MS/ Extremity: Pulses equal, no cyanosis. Neurovascular intact. Full, normal range of motion. Psych: Awake, alert, with orientation to person, place and time. Behavior, mood, and affect are within normal limits. 09:50 Neuro: Orientation: is normal, Mentation: is normal, Memory: is normal, Cranial nerves: is grossly normal based on the patient's age, Cerebellar function: is grossly normal, Motor: is normal, Sensation: is normal, Gait: not applicable Babinski testing is normal, seizure activity, is not displayed by the patient, 15:47 ECG was reviewed by the Attending Physician. [facility] Vital Signs: 09:18 BP 158 / 107; Pulse 106; Resp 17; Temp 97.9; Pulse Ox 97% ; Weight 86.18 kg; Height 6 ll1 ft. 0 in. ; Pain 3/10; 10:34 BP 138 / 108; Pulse 87; Resp 18; Pulse Ox 94% on R/A; ph 12:00 BP 124 / 81; Pulse 81; Resp 18; Pulse Ox 95% on R/A; ph 09:18 Body Mass Index 25.77 (86.18 kg, 182.88 cm) ll1 09:18 Pain Scale: Adult ll1 MDM: 09:13 Patient medically screened. jessica 09:25 Patient medically screened. jessica 09:51 Differential Diagnosis altered mental status, sepsis, flu. Differential Diagnosis: CVA, jessica electrolyte abnormality, alcohol intoxication, hypoglycemia, intracranial bleed, meningitis, overdose, pneumonia, seizure, sepsis, TIA, UTI. Data reviewed: vital signs, nurses notes, lab test result(s), EKG, radiologic studies, CT scan, plain films. Consideration of Admission/Observation Patient was admitted/placed on observation. Escalation of care including admission/observation considered. I considered the following discharge prescriptions or medication management in the emergency department Medications were administered in the Emergency Department. See MAR. Independent interpretation of the following test(s) in the Emergency Department EKG: See my EKG interpretation above. Test considered but Not performed: Ultrasound no carotid usg. Care significantly affected by the following chronic conditions: Hypertension, adhd/add. Counseling: I had a detailed discussion with the patient and/or guardian regarding the historical points, exam findings, and any diagnostic results supporting the discharge/admit diagnosis, the presence of at least one elevated blood pressure reading (>120/80) during this emergency department visit, lab results, radiology results, the need for further work-up and treatment in the hospital. 10/02 09:15 Order name: Basic Metabolic Panel; Complete Time: 10:39 [facility] 10/02 09:15 Order name: CBC with Diff; Complete Time: 10:39 [facility] 10/02 09:15 Order name: LFT's; Complete Time: 10:39 [facility] 10/02 09:15 Order name: Magnesium; Complete Time: 10:39 [facility] 10/02 09:15 Order name: NT PRO-BNP; Complete Time: 10:39 [facility] 10/02 09:15 Order name: PT-INR; Complete Time: 10:39 [facility] 10/02 09:15 Order name: Troponin HS; Complete Time: 10:39 [facility] 10/02 09:15 Order name: Blood Culture Adult (2) 10/02 09:15 Order name: Lactate w/ 2H reflex if indic.; Complete Time: 10:39 [facility] 10/02 09:15 Order name: Acetaminophen; Complete Time: 10:39 [facility] 10/02 09:15 Order name: ETOH Level; Complete Time: 10:39 [facility] 10/02 09:15 Order name: Ptt, Activated; Complete Time: 10:39 [facility] 10/02 09:15 Order name: Salicylate; Complete Time: 10:39 [facility] 10/02 09:15 Order name: Urinalysis w/ reflexes; Complete Time: 10:39 [facility] 10/02 09:15 Order name: Urine Drug Screen; Complete Time: 10:54 [facility] 10/02 09:15 Order name: Flu; Complete Time: 10:39 [facility] 10/02 09:15 Order name: SARS RAPID; Complete Time: 10:39 [facility] 10/02 10:03 Order name: Lipase; Complete Time: 10:54 [facility] 10/02 10:03 Order name: AMMONIA; Complete Time: 11:32 [facility] 10/02 12:13 Order name: Ghost Lactate-NO COLLECT Timer EDPA 10/02 09:15 Order name: XRAY Chest (1 view) [facility] 10/02 09:15 Order name: CT Head Brain wo Cont [facility] 10/02 09:15 Order name: EKG; Complete Time: 09:16 [facility] 10/02 09:15 Order name: Cardiac monitoring; Complete Time: 10:14 [facility] 10/02 09:15 Order name: EKG - Nurse/Tech; Complete Time: 10:14 [facility] 10/02 09:15 Order name: IV Saline Lock; Complete Time: 10:14 [facility] 10/02 09:15 Order name: Labs collected and sent; Complete Time: 10:14 [facility] 10/02 09:15 Order name: O2 Per Protocol; Complete Time: 10:14 jessica 10/02 09:15 Order name: O2 Sat Monitoring; Complete Time: 10:14 jessica EC:47 Rate is 82 beats/min. Rhythm is regular. QRS [place] is Normal. NM interval is normal. QRS jessica interval is normal. QT interval is normal. No Q waves. T waves are Normal. No ST changes noted. Clinical impression: NSR w/ Non-specific ST/T Changes and No evidence of ischemia. Interpreted by me. Reviewed by me. Administered Medications: 10:05 Drug: NS 0.9% IV 1000 ml IV at 1 bolus Per protocol; 1000 mL bolus Route: IV; Rate: 1 ph bolus; Site: right antecubital; 10:45 Follow up: Response: No adverse reaction; IV Status: Completed infusion ph 10:05 Drug: foLIC Acid IVPB 1 mg IVPB once Route: IVPB; Site: right antecubital; ph 10:30 Follow up: IV Status: Completed infusion ph 11:30 Drug: Thiamine IV 100 mg IV at bolus once Route: IV; Rate: bolus; Site: right antecubital; 18:46 Follow up: Response: No adverse reaction; IV Status: Completed infusion ph 11:30 Drug: Banana Bag - (Multivitamin IV 1 amp, NS 0.9% IV 1000 ml, Thiamine IV 100 mg, ph foLIC Acid IVPB 1 mg) IV at 500 ml/hr once Route: IV; Rate: 500 ml/hr; Site: right antecubital; 13:00 Follow up: Response: No adverse reaction; IV Status: Completed infusion; IV Intake: ph 1000ml 11:30 Drug: Famotidine IVP 20 mg IVP once; dilute with 10 mL 0.9% NaCl; give over 2 minutes ph Route: IVP; Site: right antecubital; 12:00 Follow up: Response: No adverse reaction ph 11:30 Drug: Rocephin IV 2 grams IV at per protocol once; Given slow IV push per pharmarcy ph instructions Route: IV; Rate: per protocol; Site: right antecubital; 12:00 Follow up: Response: No adverse reaction; IV Status: Completed infusion ph Disposition Summary: 10/03/23 11:35 Discharge Ordered Notes: Location: Home jessica Problem: new jessica Symptoms: have improved jessica Condition: Stable jessica Diagnosis - Altered mental status, unspecified jessica - Other malaise and fatigue jsesica Followup: jessica - With: Private Physician - When: 2 - 3 days - Reason: Recheck today's complaints, Continuance of care, Re-evaluation by your physician Discharge Instructions: - Discharge Summary Sheet jessica - Alcohol Intoxication jessica - Alcohol Use Disorder jessica - Confusion jessica - Weakness ejssica - Alcohol Intoxication, [id number] jessica - Alcohol Abuse and Nutrition jessica - Weakness, [id number] jessica Forms: - Medication Reconciliation Form jessica - Antibiotic Education jessica - Prescription Opioid Use jessica - Patient Portal Instructions jessica - Leadership Thank You Letter jessica - Work release form ph Prescriptions: - Folic Acid 1 mg Oral Tablet - take 1 tablet ORAL route once daily; 30 tablet; Refills: 0, Product Selection jessica Permitted Signatures: Dispatcher [employer] EDMS Leonel Dickerson MD MD cha Hall, Patricia RN RN ph Antonio Houston RN RN ll1 Corrections: (The following items were deleted from the chart) 09:16 09:16 BASIC METABOLIC PANEL+C.LAB.BRZ ordered. EDMS EDMS 09:16 09:16 CBC+H.LAB.BRZ ordered. EDMS EDMS 09:16 09:16 HEPATIC FUNCTION+C.LAB.BRZ ordered. EDMS EDMS 09:16 09:16 MAGNESIUM+C.LAB.BRZ ordered. EDMS EDMS 09:16 09:16 PROBNP+C.LAB.BRZ ordered. EDMS EDMS 09:16 09:16 PROTIME (+INR)+COAG.LAB.BRZ ordered. EDMS EDMS 09:16 09:16 Troponin High Sensitivity+C.LAB.BRZ ordered. EDMS EDMS 09:16 09:16 BLOOD CULTURE*+BA.LAB.BRZ ordered. EDMS EDMS 09:16 09:16 LACTATE+C.LAB.BRZ ordered. EDMS EDMS 09:16 09:16 ACETAMINOPHEN+C.LAB.BRZ ordered. EDMS EDMS 09:16 09:16 ETHANOL+C.LAB.BRZ ordered. EDMS EDMS 09:16 09:16 PTT, ACTIVATED+COAG.LAB.BRZ ordered. EDMS EDMS 09:16 09:16 SALICYLATE+C.LAB.BRZ ordered. EDMS EDMS 09:16 09:16 Urinalysis+U.LAB.BRZ ordered. EDMS EDMS 09:16 09:16 URINE DRUG SCREEN+UC.LAB.BRZ ordered. EDMS EDMS 09:16 09:16 Influenza Screen (A \T\ B)+BA.LAB.BRZ ordered. EDMS EDMS 09:16 09:16 SARS-COV-2 Antigen Rapid+I.LAB.BRZ ordered. EDMS EDMS 10:05 09:15 Suicide Screening ([place]) ordered. jessica ph
--- OUTSIDE RECORDS SUMMARY | 2023-10-03 12:05 | XMS REPORT | Continuity of Care Document ---
Author Name Unknown Address [address] [facility] [place] [address] [facility] Address [address] [facility] [place] [address] Care Team Providers Care Bolter Helper Name Role Phone Danis Jacob Attending Clinician Unavailable Payers Payer Name Policy Type Policy Number Effective Date Expirati on Date Source [facility] 6 [id number] 2023 00:00:00 [facility] AETNA 53 [id number] 2020 00:00:00 [facility] AETNA C1 [id number] 2020 00:00:00 [facility] CIGNA C1 [id number] 2019 00:00:00 [facility] Problems Condition Name Condition Details Condition Category Status Onset Date Resolution Date Last Treatment Date Treating Clinician Comments Source [id number] Hyperchole sterolemia with LDL greater than 190 mg/dL Problem [facility] [id number] Hypercalce julien Problem [facility] [id number] Recurrent nephrolith iasis Problem [facility] [id number] History of vasectomy Problem [facility] [id number] Microscopi c hematuria Problem [facility] [id number] GERD without esophagiti s Problem [facility] [id number] Family history of colon cancer Problem [facility] [id number] Benign prostatic hyperplasi a with lower urinary tract symptoms Problem [facility] [id number] Other obstructiv e and reflux uropathy Problem [facility] [id number] Benign microscopi c hematuria Problem [facility] [id number] Left testicular pain Problem [facility] [id number] Hypertrigl yceridemia Problem Active [facility] [id number] Fatty liver Problem Active [facility] [id number] Alcohol abuse Problem Active [facility] [id number] Tobacco use disorder, continuous Problem Active [facility] [id number] Leukocytos is, unspecifie d type Problem Active [facility] 548247 Moderate major depression Problem [facility] [id number] Essential (primary) hypertensi on Problem [facility] [id number] 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 Ordering Clinician Indication Dosage Frequency Signature (SIG) Comments Components Source Uroxatral 10 MG Uroxatral 10 MG 4-11 00:00: 00 No 1{table t_at_be dtime} QD Uroxatral 10 MG buPROPion HCl ER (XL) 150 MG buPROPion HCl ER (XL) 150 MG 1-15 00:00: 00 No 1{table t_in_th e_morni ng} QD buPROPion HCl ER (XL) 150 MG Kenalog (Triamcinol one) Kenalog (Triamcinol one) 7-08 00:00: 00 No 40mg [facility] Lisinopril 10 MG Lisinopril 10 MG No 1{table t} QD Lisinopril 10 MG Lisinopril 20 MG Lisinopril 20 MG No Lisinopril 20 MG Ibuprofen 800 MG Ibuprofen 800 MG No Ibuprofen 800 MG Vital Signs Vital Name Observation Time Observation Value Comments Jerry bryan height 2023-09-27 13:15:00 73 [in_i] Commo n [facility] weight 2023-09-27 13:15:00 201.4 [lb_av] Co [facility] temperature 2023-09-27 13:15:00 97.6 [degF] Com [facility] bmi 2023-09-27 13:15:00 26.57 kg/m2 Comm on [facility] oximetry 2023-09-27 13:15:00 99 % Commo n [facility] respiratory rate 2023-09-27 13:15:00 18 /min [facility] blood pressure systolic 2023-09-27 13:15:00 134 mm[Hg] Common [facility] blood pressure diastolic 2023-09-27 13:15:00 83 mm[Hg] [facility] height 2023-09-15 10:00:00 73 [in_i] Commo n [facility] weight 2023-09-15 10:00:00 195.8 [lb_av] Co [facility] temperature 2023-09-15 10:00:00 97.8 [degF] Com [facility] bmi 2023-09-15 10:00:00 25.83 kg/m2 Comm on [facility] oximetry 2023-09-15 10:00:00 97 % Commo n [facility] blood pressure systolic 2023-09-15 10:00:00 128 mm[Hg] [facility] blood pressure diastolic 2023-09-15 10:00:00 72 mm[Hg] Common [facility] height 2023-05-17 17:30:00 73 [in_i] Commo n [facility] weight 2023-05-17 17:30:00 200.2 [lb_av] Co mmon [facility] temperature 2023-05-17 17:30:00 98.2 [degF] Com mon [facility] bmi 2023-05-17 17:30:00 26.41 kg/m2 Comm on [facility] oximetry 2023-05-17 17:30:00 98 % Commo n [facility] respiratory rate 2023-05-17 17:30:00 18 /min [facility] blood pressure systolic 2023-05-17 17:30:00 132 mm[Hg] [facility] blood pressure diastolic 2023-05-17 17:30:00 80 mm[Hg] [facility] height 2023-05-15 15:50:00 73 [in_i] Commo n [facility] weight 2023-05-15 15:50:00 193 [lb_av] Comm on [facility] temperature 2023-05-15 15:50:00 97.3 [degF] Com [facility] bmi 2023-05-15 15:50:00 25.46 kg/m2 Comm on [facility] oximetry 2023-05-15 15:50:00 97 % Commo n [facility] blood pressure systolic 2023-05-15 15:50:00 126 mm[Hg] [facility] blood pressure diastolic 2023-05-15 15:50:00 70 mm[Hg] Common [facility] height 2023-04-24 15:50:00 73 [in_i] Commo n [facility] weight 2023-04-24 15:50:00 197.4 [lb_av] Co mmon [facility] temperature 2023-04-24 15:50:00 98.1 [degF] Com mon [facility] bmi 2023-04-24 15:50:00 26.04 kg/m2 Comm on [facility] oximetry 2023-04-24 15:50:00 97 % Commo n [facility] blood pressure systolic 2023-04-24 15:50:00 137 mm[Hg] [facility] blood pressure diastolic 2023-04-24 15:50:00 70 mm[Hg] [facility] height 2020-12-10 07:50:00 73 [in_i] Commo n [facility] weight 2020-12-10 07:50:00 198 [lb_av] Comm on [facility] temperature 2020-12-10 07:50:00 98 [degF] Comm on [facility] bmi 2020-12-10 07:50:00 26.12 kg/m2 Comm on [facility] blood pressure systolic 2020-12-10 07:50:00 135 mm[Hg] [facility] blood pressure diastolic 2020-12-10 07:50:00 70 mm[Hg] [facility] height 2020-10-15 15:30:00 73 [in_i] Commo n [facility] weight 2020-10-15 15:30:00 197.5 [lb_av] Co mmon [facility] temperature 2020-10-15 15:30:00 98.0 [degF] Com mon [facility] bmi 2020-10-15 15:30:00 26.05 kg/m2 Comm on [facility] oximetry 2020-10-15 15:30:00 97 % Commo n [facility] respiratory rate 2020-10-15 15:30:00 16 /min Common [facility] blood pressure systolic 2020-10-15 15:30:00 131 mm[Hg] [facility] blood pressure diastolic 2020-10-15 15:30:00 79 mm[Hg] [facility] Encounters Start Date/Time End Date/Time Encounter Type Admission Type Attending [facility] Care Department Encounter ID Source 2023-09-25 16:15:00 Outpatient Jacob, Danis STLMLC STLMLC [id number] [facility] 2023-09-13 10:57:00 Outpatient Jacob, Danis STLMLC ST[facility]C [id number] [facility] 2023-06-28 14:12:00 Outpatient Jacob, Danis STLMLC ST[facility] [id number] [facility] 2023-04-21 13:31:00 Outpatient Jacob, Danis STLMLC STLMLC [id number] [facility] 2021-05-05 13:46:23 Outpatient Jacob, Danis STLMLC STLMLC [id number] [facility] 2021-05-05 13:44:04 Outpatient Jacob, Danis STLMLC STLMLC [id number] [facility] 2021-05-05 13:43:40 Outpatient Jacob, Danis STLMLC STLMLC [id number] [facility] 2021-05-05 13:24:13 Outpatient Jacob, Danis STLMLC STLMLC [id number] [facility] 2021-05-05 12:26:01 Outpatient Jacob, Danis STLMLC STL[facility]C [id number] [facility] 2021-05-05 12:06:51 Outpatient Jacob, Danis STLMLC STLMLC [id number] [facility] 2021-05-05 11:22:37 Outpatient Jacob, Danis STLMLC STLMLC [id number] [facility] 2021-05-05 11:16:04 Outpatient Jacob, Danis STLMLC STLMLC [id number] [facility] 2021-05-05 11:15:46 Outpatient Jacob, Danis STLMLC STLMLC [id number] [facility] 2021-05-05 11:15:19 Outpatient Jacob, Danis STLMLC STLMLC [id number] [facility] 2021-05-05 11:10:41 Outpatient Jacob, Danis STLMLC STLMLC [id number] [facility] 2023-09-27 00:00:00 2023-09-27 00:00:00 OFFICE VISIT ESTAB PT LEVEL 3 [facility]MLC STL[facility]C [id number] [facility] 2023-09-19 00:00:00 2023-09-19 00:00:00 (WEB) STLMLC STLMLC [id number] [facility] 2023-09-15 00:00:00 2023-09-15 00:00:00 OFFICE VISIT ESTAB PT LEVEL 4 STLMLC STLMLC [id number] [facility] 2023-08-07 00:00:00 2023-08-07 00:00:00 (TEL) STLMLC STLMLC [id number] [facility] 2023-06-12 00:00:00 2023-06-12 00:00:00 (TEL) STLMLC STLMLC [id number] [facility] 2023-06-12 00:00:00 2023-06-12 00:00:00 (WEB) STLMLC STLMLC [id number] [facility] 2023-05-24 00:00:00 2023-05-24 00:00:00 (WEB) STLMLC STLMLC [id number] [facility] 2023-05-21 00:00:00 2023-05-21 00:00:00 (WEB) STLMLC STLMLC [id number] [facility] 2023-05-21 00:00:00 2023-05-21 00:00:00 (WEB) STLMLC STLMLC [id number] [facility] 2023-05-17 00:00:00 2023-05-17 00:00:00 OFFICE VISIT NEW PT LEVEL 5 STLMLC STLMLC [id number] [facility] 2023-05-15 00:00:00 2023-05-15 00:00:00 OFFICE VISIT ESTAB PT LEVEL 4 [facility]LMLC STL[facility]C [id number] [facility] 2023-04-27 00:00:00 2023-04-27 00:00:00 (TEL) STLMLC STLMLC [id number] [facility] 2023-04-24 00:00:00 2023-04-24 00:00:00 (WELLNESS) Wellness Visit STLMLC STLMLC [id number] [facility] 2023-04-21 00:00:00 2023-04-21 00:00:00 (TEL) STLMLC STLMLC [id number] [facility] 2023-04-11 00:00:00 2023-04-11 00:00:00 (TEL) STLMLC STLMLC [id number] [facility] 2021-04-23 00:00:00 2021-04-23 00:00:00 (TEL) STLMLC STLMLC [id number] [facility] 2020-12-10 00:00:00 2020-12-10 00:00:00 OFFICE VISIT ESTAB PT LEVEL 4 STLMLC STLMLC [id number] [facility] 2020-10-16 00:00:00 2020-10-16 00:00:00 (TEL) STLMLC STLMLC [id number] [facility] 2020-10-15 00:00:00 2020-10-15 00:00:00 (TEL) STLMLC STLMLC [id number] [facility] 2020-10-15 00:00:00 2020-10-15 00:00:00 [facility] [id number] 2020-02-28 00:00:00 2020-02-28 00:00:00 Outpatient [facility] [id number] [facility] 2019-11-22 09:45:00 2019-11-22 09:45:00 Outpatient [facility] [id number] [facility] 2019-11-14 12:59:00 2019-11-14 12:59:00 Outpatient [facility] [id number] [facility] 2019-08-30 10:00:00 2019-08-30 10:00:00 Outpatient [facility] [id number] [facility] 2019-07-06 09:00:00 2019-07-06 09:00:00 Outpatient [facility] [id number] [facility] Results Test Description Test Time Test Comments Results Result Co mments Source URIC [id number] 00:00:00* Test Item Value Reference Range Interpretation Comme nts URIC ACID (test code = 2501-5) 6.6 MG/DL See_Comment [Automated messa ge] The system which generated this result transmitted reference range: 3.7-8.0 MG/DL. The reference range was not used to interpret this result as normal/abnormal. HEMOGLOBIN [id number] 00:00:00* Test Item Value Reference Range Interpretation Comme nts HEMOGLOBIN A1c (test code = 4548-4) 5.7 % See_Comment H [Automated messa ge] The system which generated this result transmitted reference range: 4.2-5.6 %. The reference range was not used to interpret this result as normal/abnormal. TSH REFLEX TO FREE [id number] 00:00:00* Test Item Value Reference Range Interpretation Comme nts TSH REFLEX TO FREE T4 (test code = 25858-8) 2.220 UIU/ML See_Comment [Automated messa ge] The system which generated this result transmitted reference range: 0.400-4.100 UIU/ML. The reference range was not used to interpret this result as normal/abnormal. URINALYSIS (CULTURE IF INDICATED)2023-04-24 00:00:00* Test Item Value Reference Range Interpretation Comme nts APPEARANCE (test code = 5767-9) TURBID CLEAR A BACTERIA (test code = 89781-6) NONE SEEN NONE SEEN BILIRUBIN (test code = 5770-3) 1+ NEGATIVE A CASTS, HYALINE (test code = 96858-3) NONE SEEN NONE-TRACE COLOR (test code = 5778-6) DARK YELLOW YELLOW-STRAW A CRYSTALS (test code = 5782-8) PRESENT NONE SEEN A EPITHELIAL CELLS (test code = 99428-5) 0-5 /HPF See_Comment [Automated Differentiala Baboom] The system which generated this result transmitted reference range: 0-5 /HPF. The reference range was not used to interpret this result as normal/abnormal. GLUCOSE (test code = 5792-7) NEGATIVE NEGATIVE KETONES (test code = 5797-6) 3+ NEGATIVE A LEUKOCYTE ESTERASE (test code = 5799-2) TRACE NEGATIVE A NITRITE (test code = 5802-4) NEGATIVE NEGATIVE OCCULT BLOOD (test code = 60457-8) 2+ NEGATIVE A pH (test code = 5803-2) 6.5 5.0-9.0 PROTEIN (test code = 81761-2) 1+ NEGATIVE A RED BLOOD CELLS (test code = 63746-2) 11-15 /HPF See_Comment A [Automated Differentiala Baboom] The system which generated this result transmitted reference range: 0-2 /HPF. The reference range was not used to interpret this result as normal/abnormal. SPECIFIC GRAVITY (test code = 5811-5) 1.032 1.005-1.035 UROBILINOGEN (test code = 41022-8) 1.0 MG/DL See_Comment [Automated Differentiala ge] The system which generated this result transmitted reference range: <=2.0 MG/DL. The reference range was not used to interpret this result as normal/abnormal. WHITE BLOOD CELLS (test code = 36768-9) 0-5 /HPF See_Comment [Automated message] The system which generated this result transmitted reference range: 0-5 /HPF. The reference range was not used to interpret this result as normal/abnormal. LIPID PANEL WITH REFLEX DIRECT [id number] 00:00:00* Test Item Value Reference Range Interpretation Comme nts CALC LDL CHOL (test code = 69830-0) 191 MG/DL See_Comment H [Automated messa ge] The system which generated this result transmitted reference range: <100 MG/DL. The reference range was not used to interpret this result as normal/abnormal. CHOLESTEROL (test code = 2093-3) 268 MG/DL See_Comment H [Automated messa ge] The system which generated this result transmitted reference range: <200 MG/DL. The reference range was not used to interpret this result as normal/abnormal. HDL CHOLESTEROL (test code = 2085-9) 48 MG/DL See_Comment [Automated messa ge] The system which generated this result transmitted reference range: >39 MG/DL. The reference range was not used to interpret this result as normal/abnormal. RISK RATIO LDL/HDL (test code = 54724-6) 3.98 RATIO See_Comment H [Automated message] The system which generated this result transmitted reference range: <3.55 RATIO. The reference range was not used to interpret this result as normal/abnormal. TRIGLYCERIDES (test code = 2571-8) 137 MG/DL See_Comment [Automated messa ge] The system which generated this result transmitted reference range: <150 MG/DL. The reference range was not used to interpret this result as normal/abnormal. HEPATITIS A TOTAL AB REFLEX TO [id number] 00:00:00* Test Item Value Reference Range Interpretation Comme nts HEPATITIS A TOTAL AB (test c ode = 60058-4) NON-REACTIVE NON-REACTIVE COMPREHENSIVE METABOLIC [id number] 00:00:00* Test Item Value Reference Range Interpretation Comme nts ALBUMIN (test code = 1751-7) 5.6 G/DL See_Comment H [Automated messa ge] The system which generated this result transmitted reference range: 3.5-5.2 G/DL. The reference range was not used to interpret this result as normal/abnormal. ALKALINE PHOSPHATASE (test code = 6768-6) 74 U/L See_Comment [Automated message] The system which generated this result transmitted reference range: 40-117 U/L. The reference range was not used to interpret this result as normal/abnormal. BILIRUBIN, TOTAL (test code = 1975-2) 1.0 MG/DL See_Comment [Automated message] The system which generated this result transmitted reference range: <=1.2 MG/DL. The reference range was not used to interpret this result as normal/abnormal. BUN (test code = 3094-0) 14 MG/DL See_Comment [Automated messa ge] The system which generated this result transmitted reference range: 6-20 MG/DL. The reference range was not used to interpret this result as normal/abnormal. CALCIUM (test code = 64689-6) 11.0 MG/DL See_Comment H [Automated messa ge] The system which generated this result transmitted reference range: 8.5-10.5 MG/DL. The reference range was not used to interpret this result as normal/abnormal. CALC A/G RATIO (test code = 1759-0) 2.2 RATIO See_Comment [Automated messa ge] The system which generated this result transmitted reference range: 1.0-2.6 RATIO. The reference range was not used to interpret this result as normal/abnormal. CALC BUN/CREAT (test code = 3097-3) 17 RATIO See_Comment [Automated messa ge] The system which generated this result transmitted reference range: 6-28 RATIO. The reference range was not used to interpret this result as normal/abnormal. CALC GLOBULIN (test code = 52425-8) 2.5 G/DL See_Comment [Automated messa ge] The system which generated this result transmitted reference range: 1.9-3.7 G/DL. The reference range was not used to interpret this result as normal/abnormal. CARBON DIOXIDE (test code = 1963-8) 29 MEQ/L See_Comment [Automated messa ge] The system which generated this result transmitted reference range: 19-31 MEQ/L. The reference range was not used to interpret this result as normal/abnormal. CHLORIDE (test code = 2075-0) 94 MEQ/L See_Comment L [Automated messa ge] The system which generated this result transmitted reference range: 95-107 MEQ/L. The reference range was not used to interpret this result as normal/abnormal. CREATININE (test code = 2160-0) 0.82 MG/DL See_Comment [Automated messa ge] The system which generated this result transmitted reference range: 0.80-1.40 MG/DL. The reference range was not used to interpret this result as normal/abnormal. eGFR (2020 CKD-EPI) (test code = 07876-6) 114 ML/MIN/1.73 See_Comment [Automated message] The system which generated this result transmitted reference range: >60 ML/MIN/1.73. The reference range was not used to interpret this result as normal/abnormal. GLUCOSE (test code = 1558-6) 99 MG/DL See_Comment [Automated messa ge] The system which generated this result transmitted reference range: 70-99 MG/DL. The reference range was not used to interpret this result as normal/abnormal. POTASSIUM (test code = 2823-3) 4.6 MEQ/L See_Comment [Automated messa ge] The system which generated this result transmitted reference range: 3.5-5.4 MEQ/L. The reference range was not used to interpret this result as normal/abnormal. PROTEIN, TOTAL (test code = 2885-2) 8.1 G/DL See_Comment [Automated messa ge] The system which generated this result transmitted reference range: 6.1-8.3 G/DL. The reference range was not used to interpret this result as normal/abnormal. AST (test code = 1920-8) 125 U/L See_Comment H [Automated messa ge] The system which generated this result transmitted reference range: 9-50 U/L. The reference range was not used to interpret this result as normal/abnormal. ALT (test code = 1742-6) 98 U/L See_Comment H [Automated messa ge] The system which generated this result transmitted reference range: 5-50 U/L. The reference range was not used to interpret this result as normal/abnormal. SODIUM (test code = 2951-2) 139 MEQ/L See_Comment [Automated messa ge] The system which generated this result transmitted reference range: 133-146 MEQ/L. The reference range was not used to interpret this result as normal/abnormal. ColonoscopyColonoscopy
--- NOTE | 2023-10-03 12:14 | RAD REPORT ---
EXAM DESCRIPTION: CT - Head Brain Wo Cont - 10/03/2023 12:04 pm CLINICAL HISTORY: MENTAL STATUS CHANGE COMPARISON: Head Brain Wo Cont dated 04/12/2023; Head Brain Wo Cont dated 11/09/2019 TECHNIQUE: Noncontrast head CT images were obtained without IV contrast. Multiplanar reformats were generated and reviewed. All CT scans are performed using dose optimization technique as appropriate and may include automated exposure control or mA/KV adjustment according to patient size. FINDINGS: No intracranial hemorrhage, mass, or edema. Midline structures are unremarkable. Normal ventricular caliber for age. Cole-white matter differentiation is preserved, without evidence of acute infarct. No abnormal extra- axial fluid collections. Mastoid air cells and visualized portions of the paranasal sinuses are clear. No acute bony findings. IMPRESSION: No evidence of an acute intracranial process.
[2023-10-03 12:54] VITALS: BP 124/81; TEMP 97.9; O2SAT 95
--- NOTE | 2023-10-03 13:41 | RAD REPORT ---
EXAM DESCRIPTION: RADChest Single View10/03/2023 12:04 pm CLINICAL HISTORY: COUGH COMPARISON: Chest Single View dated 04/12/2023 TECHNIQUE: Portable AP view of the chest. FINDINGS: Mild patchy right basilar opacities. No pneumothorax or effusion. The cardiomediastinal c ontours are unremarkable. IMPRESSION: Mild patchy right basilar airspace opacities, may reflect early airspace disease.
--- NOTE | 2023-10-04 13:53 | EKG ---
Test Date: 2023-10-03 Test Time: 10:27:33 Conservator Artifacts: PH MEASUREMENT RESULTS: Intervals: Rate: 82 LA: 146 QRSD: 92 QT: 372 QTc: 434 [place]: P: 63 LA: 146 QRS: 66 T: 53 INTERPRETIVE STATEMENTS: Normal sinus rhythm ST elevation, probably due to early repolarization Borderline ECG Compared to ECG 05/25/2023 11:22:49 ST (T wave) deviation now present Early repolarization now present Electronically Signed On 10-04-23 13:49:19 CDT by Nelson Valdes
== END 2023-10-03 15:53 | disposition home or self-care (01) ==
LOC: ER 09:12
DX: R41.82 Altered mental status, unspecified (principal); R53.81 Other malaise; R53.83 Other fatigue; R05.9 Cough, unspecified; F17.210 Nicotine dependence, cigarettes, uncomplicated; Z11.52 Encounter for screening for COVID-19
CPT/HCPCS: 36415; 70450; 71045; 80048; 80076; 80143; 80179; 80307; 81001; 82077; 82140; 83605; 83690; 83735; 83880; 84484; 85025; 85610; 85730; 87040; 87804; 87811; 93005